=== PATIENT | female | born 1955 | race Caucasian/White ===

== ENCOUNTER 2019-07-30 06:38 | Day surgery (SDC) | payer BC ==
[2019-07-30] MEDS ORDERED: Sodium Chloride 0.9% 1,000 ML IV SCH (07:00)
[2019-07-30] MEDS ORDERED: Propofol 200 MG/20 ML SDV ONE (07:21)
[2019-07-30] MEDS ORDERED: fentaNYL 100 MCG/2 ML SDV ONE (07:21)
[2019-07-30] MEDS ORDERED: Midazolam 1 MG/ML 2 ML SDV ONE (07:21)
--- NOTE | 2019-07-31 09:23 | OR ---
DATE OF PROCEDURE: 07/30/2019 SURGEON: Tyler Ann MD PROCEDURE: Colonoscopy. FINDINGS: Sigmoid colon polyp, approximately 5 mm, completely removed using hot snare forceps. COMPLICATIONS: None. COLLET DRILLER: None. PREOPERATIVE DIAGNOSIS: Screening colonoscopy. POSTOPERATIVE DIAGNOSIS: Screening colonoscopy. RISKS: Risks, benefits, alternatives, and limitations including, but not limited to infection, bleeding, and perforation were explained to the patient, who wished to proceed. PROCEDURE IN DETAIL: The patient was placed in left lateral decubitus position. Digital rectal exam was performed without abnormality. Scope was introduced and advanced atraumatically to the ileocecal valve. Scope was brought back through the ascending, transverse, descending colon, and retroflexed. The polyp was identified and completely removed as described above. No other abnormalities were noted. The patient tolerated the procedure well. Tyler Ann MD /[id number]
== END 2019-07-30 09:55 | disposition home or self-care (01) ==
LOC: JP.SDS 06:38
PROVIDERS: ATTEND Surgery
DX: Z12.11 Encounter for screening for malignant neoplasm of colon (principal); K63.5 Polyp of colon; E78.5 Hyperlipidemia, unspecified; F17.200 Nicotine dependence, unspecified, uncomplicated; E66.9 Obesity, unspecified; Z91.030 Bee allergy status
CPT/HCPCS: 45385; 88305; J2250; J2704; J3010; J7030